=== PATIENT | male | born 1985 | race African-American/Black ===

== ENCOUNTER 2016-11-12 09:43 | Day surgery (SDC) | payer MEDICAID ==
[2016-11-12] VITALS (9 sets, daily range): BP systolic 100–126; BP diastolic 59–84; Ht 172.7 cm; Wt 72.7 kg
[~2016-11-12] VITALS: Ht 172.7 cm; Wt 72.7 kg
[2016-11-12 10:35] LABS: BASOPHILS 0.6 % (0.0-2.0); EOSINOPHILS 4.1 % (0-7); HEMATOCRIT 44.5 % (42.0-54.0); HEMOGLOBIN 15.1 g/dL (13.5-17.5); IMMATURE GRANULOCYTES 0.3 % (0-5); LYMPHOCYTES 26.7 % (15-50); MCH 30.9 pg (26.0-34.0); MCHC 33.9 g/dL (31.0-37.0); MCV 91.2 fL (80.0-100.0); MEAN PLATELET VOLUME 11.1 fL (7.4-10.4); MONOCYTES 8.7 % (2-11); NEUTROPHILS 59.6 % (40-80); PLATELET COUNT 261 10x3/uL (130-400); RBC 4.88 10x6/uL (4.20-6.10); WBC 7.3 10x3/uL (4.8-10.8)
[2016-11-12 11:04] LABS: ALBUMIN 3.8 g/dL (3.4-5.0); ALKALINE PHOSPHATASE 95 U/L (46-116); ALT (SGPT) 31 U/L (10-68); BILIRUBIN - TOTAL 0.29 mg/dL (0.2-1.3); CALC OSMOLALITY 277 mosm/kg (275-300); CALCIUM 9.3 mg/dL (8.5-10.1); CHLORIDE - SERUM 104 mmol/L (98-107); GLUCOSE 102 mg/dL (74-106); POTASSIUM - SERUM 3.8 mmol/L (3.5-5.1); PROTEIN - SERUM 7.6 g/dL (6.4-8.2); SODIUM 140 mmol/L (136-145); UREA NITROGEN 9 mg/dL (7-18); eGFR NON AFRICAN AMERICAN > 90 mL/min (90-120)
[2016-11-12] MEDS ORDERED: HYDROCODONE-APA1 TAB PO (13:04)
--- NOTE | 2016-11-12 13:30 | NUR ---
PATIENT TO ROOM AT THIS TIME. VS STABLE. NO COMPLAINTS OF PAIN. EYES CLOSED RESTING. IV INTACT. CALL LIGHT WITHIN REACH. FAMILY AT BEDSIDE. WILL CONTINUE TO MONITOR.
--- NOTE | 2016-11-12 14:00 | NUR ---
PATIENT UP TO BR TO VOID AT THIS TIME. NO COMPLAINTS OR SIGNS OF DISTRESS. STATED HAND IS NUMB. EXPLAINED TO PATIENT THAT A NERVE BLOCK WAS GIVEN AND THAT IT WILL BE NUMB FOR A WHILE. VERBALIZED UNDERSTANDING. NEUROVASCULAR CHECKS WNL. NO PAIN. TOLERATED WATER WITH N/V. CALL LIGHT WITHIN REACH.
--- NOTE | 2016-11-12 15:00 | NUR ---
PATIENT SITTING UP WITH NO COMPLAINTS AT THIS TIME. IV INTACT. NEUROVASCULAR CHECKS WNL. PATIENT WANTING TO LEAVE AT THIS TIME. EXPLAINED HE HAD TO EAT AND MAKE SURE THAT HE IS OK BEFORE DC. VERBALIZED UNDERSTANDING. CALL LIGHT WITHIN REACH. VS STABLE. FAMILY AT BEDSIDE.
--- NOTE | 2016-11-12 16:00 | NUR ---
PATIENT TOLERATED REGULAR FOOD. STATED HE WASNT REALLY HUNGRY AT THIS TIME. NO NAUSEA OR VOMITTING. NEUROVASCULAR CHECKS WNL. VS STABLE. PATIENT WANTING TO DISCHARGE. EXPLAINED HAD TO WATCH HIM A LITTLE LONGER FOR N/V, DIZZINESS, VERBALIZED UNDERSTANDING. CALL LIGHT WITHIN REACH.
--- NOTE | 2016-11-12 17:00 | NUR ---
PATIENT OUT OF ROOM FULLY DRESSED AND STATED HE IS READY TO GO. EXPLAINED TO PATIENT I HAD TO GET DC PAPERS. VERBALIZED UNDERSTANDING. NEUROVASCULAR CHECKS WNL. NO COMPLAINTS. CALL LIGHT WITHIN REACH.
--- NOTE | 2016-11-12 17:03 | NUR ---
PATIENT RECIEVED DISCHARGE INSTRUCTIONS. VERBALIZED UNDERSTANDING. NO QUESTIONS AT THIS TIME. IV REMOVED WITH CATH TIP INTACT. PRESCRIPTION GIVEN TO PATIENT WITH TEACHING SHEET ON MED. PATIENT REFUSED WC. AMBULATED DOWN TO PRIVATE VEHICLE WITH PERSONAL BELONGINGS ESCORTED BY FAMILY.
--- NOTE | 2016-11-14 11:07 | OP ---
PATIENT NAME: KATIUSKA WONG MEDICAL RECORD: [id number] :85 LOCATION:[id number] ADMISSION DATE:11/12/16 SURGEON: MARGARET BENITEZ MD DATE OF OPERATION: 11/12/2016 PREOPERATIVE DIAGNOSES: Comminuted distal radius fracture of the right wrist, early carpal tunnel syndrome. POSTOPERATIVE DIAGNOSIS: Comminuted distal radius fracture of the right wrist. PROCEDURE: 1. Open reduction internal fixation of the right wrist. 2. Carpal tunnel syndrome release. SURGEON: Margaret Benitez MD ANESTHESIA: General. INTRAOPERATIVE COMPLICATIONS: None. SUMMARY OF PATHOLOGIC FINDINGS: The patient has a blood down underneath the transverse carpal ligament as well as a very distal fracture of the distal radius, easily amenable to fixation by a volar plate using the [employer] distal radius system. OPERATIVE SUMMARY IN DETAIL: After obtaining the appropriate preoperative orthopedic surgery consent as well as anesthetic consultation, evaluation and clearance, the patient was brought to the operating room and placed on the operating table in supine position. After adequate general laryngeal mask was administered, tourniquet was placed about the proximal aspect of the right lower extremity. He was prepped and draped in routine sterile fashion. The arm was elevated, exsanguinated, and tourniquet inflated to 350 mmHg. Reduction maneuver was performed. Final fluoroscopic radiographs. Volar approach of the Doug was done to the mid palmar crease over the radial artery and down the shaft of the radius. This was gently taken down to the level of the radius maintaining care to avoid neurovascular structures. Formal carpal tunnel release was done to the distal carpal transverse ligament while protecting the median nerve. Bony ends were exposed. Fracture was exposed curettage was used to remove hematoma. Reduction maneuver was held in place while the plate was affixed. Initially the plate was affixed with provisional K wires. This was followed by serial and sequential drill and fill fixation for an anatomic reduction seen on both AP and lateral planes with good latter day of radial angle of inclination, volar tilt as well as radial height. Having completed this, final radiographs were taken and submitted. Note the use of a combination of both compression and locking screws were utilized. Wound was copiously irrigated and closed in the usual fashion. Sterile dressings were applied. Tourniquet was deflated. The patient was awakened, taken to recovery room in stable condition. All final needle and sponge counts were correct. TRANSINT:[id number] Voice Confirmation ID: [id number] DOCUMENT ID: [id number] OPERATIVE REPORT [id number] KATIUSKA WONG MD, MARGARET VELEZ at 1107 CC: [id number] DICTATION DATE: 11/12/16 1302 LIQUID FLOOR AND WALL APPLIER: 11/12/16 1326 DIS IN 11/12/16 [place] [id number] [place] [id number]
== END 2016-11-12 17:30 | disposition home or self-care (01) ==
LOC: OBSVTIME → D.ER 09:43 → D.OPS 09:43 → EDSTATUS 10:22 → D.ER 10:32 → D.MS 10:32 → OBSVTIME 10:32 → D.MS 10:32 → D.OPS 17:30
PROVIDERS: Emergency Medicine
DX: S52.501A Unspecified fracture of the lower end of right radius, initial encounter for closed fracture (principal); W19.XXXA Unspecified fall, initial encounter; Y92.009 Unspecified place in unspecified non-institutional (private) residence as the place of occurrence of the external cause; F17.200 Nicotine dependence, unspecified, uncomplicated